=== PATIENT | male | born 1955 | race Caucasian/White ===

== ENCOUNTER → 2018-01-18 | Outpatient (CLI) | payer OTHER ==
[~2018-01-18] MED LIST: AMLO5 PO; ATOR10 PO; BISHYD2.5 PO; DIAZ5 PO; IBUP600 PO; Imdur30 MG PO; LOSHYD100 PO; OXYACE5T PO
== END | disposition home or self-care (01) ==
LOC: PLD 14:58 → LAB SHORT 14:58
DX: L72.0 Epidermal cyst (principal)
CPT/HCPCS: 88304

== ENCOUNTER 2022-10-06 07:18 | Day surgery (SDC) | payer MEDICARE ==
[~2022-10-06] VITALS: Ht 180.3 cm; Wt 106.0 kg
[2022-10-06] MEDS ORDERED: HYDCHL50 PO (07:30)
[2022-10-06] MEDS ORDERED: GABA300 PO (07:30)
[2022-10-06] MEDS ORDERED: IRBE150 PO (07:31)
[2022-10-06] MEDS ORDERED: METF500 PO ×2 (07:31)
[2022-10-06 08:50] VITALS: BP 117/70
== END 2022-10-06 09:01 | disposition home or self-care (01) ==
LOC: ORSCSDS 07:18
PROVIDERS: Ophthalmology
PROC: 08DK3ZZ Extraction of Left Lens, Percutaneous Approach (ICD-10-PCS; principal; 2022-10-06 08:30)
DX: E11.36 Type 2 diabetes mellitus with diabetic cataract (principal); H25.12 Age-related nuclear cataract, left eye; I10 Essential (primary) hypertension; Z79.84 Long term (current) use of oral hypoglycemic drugs; Z79.899 Other long term (current) drug therapy
CPT/HCPCS: 82947; J2001; J2250; J3010; J3301; J7040; V2632

== ENCOUNTER 2023-09-01 20:10 | Emergency (ER) | payer MEDICARE ==
[~2023-09-01] VITALS: Ht 180.3 cm; Wt 99.8 kg
[~2023-09-01 20:10] MED LIST changes: +GABA300 PO; +HYDCHL50 PO; +IRBE150 PO; +METF500 PO
[2023-09-01 20:15] VITALS: BP 156/85
[2023-09-01] MEDS ORDERED: HYDROcodone 5-APAP 325 TAB PO ONE (20:50)
[2023-09-01] MEDS ORDERED: Ketorolac Tromethamine 10 MG Tab PO ONE (20:50)
[2023-09-01] MEDS ORDERED: Robaxin750 MG PO (22:54)
[2023-09-01] MEDS ORDERED: LIDOCAINE1 EACH TOP (22:54)
== END 2023-09-01 22:59 | disposition home or self-care (01) ==
LOC: ER 20:10
DX: M54.50 Low back pain, unspecified (principal); Z88.8 Allergy status to other drugs, medicaments and biological substances; Z79.899 Other long term (current) drug therapy; Z79.84 Long term (current) use of oral hypoglycemic drugs; E78.00 Pure hypercholesterolemia, unspecified; I10 Essential (primary) hypertension
CPT/HCPCS: 72131; 99283-25; A9270

== ENCOUNTER 2025-01-22 17:43 | Emergency (ER) | payer MEDICARE ==
[~2025-01-22] VITALS: Ht 180.3 cm; Wt 103.4 kg
[~2025-01-22 17:43] MED LIST changes: +LIDOCAINE1 EACH TOP; +Robaxin750 MG PO
[2025-01-22 18:24] VITALS: BP 147/83
== END 2025-01-22 21:15 | disposition home or self-care (01) ==
LOC: ER 17:43
DX: R51.9 Headache, unspecified (principal); E78.00 Pure hypercholesterolemia, unspecified; I10 Essential (primary) hypertension; Z79.84 Long term (current) use of oral hypoglycemic drugs; Z88.8 Allergy status to other drugs, medicaments and biological substances
CPT/HCPCS: 70450; 99284-25